=== PATIENT | female | born 1950 | race African-American/Black ===

== ENCOUNTER 2023-12-04 14:41 | Emergency (ER) | payer OTHER ==
[~2023-12-04] VITALS: Ht 172.7 cm; Wt 95.0 kg
[2023-12-04 14:58] VITALS: O2SAT 98
[2023-12-04] MEDS ORDERED: compazine (14:58)
[2023-12-04] MEDS ORDERED: oxycodone (14:58)
[2023-12-04] MEDS ORDERED: simvastatin (14:58)
[2023-12-04] MEDS ORDERED: baclofen (14:58)
[2023-12-04] MEDS ORDERED: gabapentin (14:58)
[2023-12-04] MEDS ORDERED: triamterene (14:58)
[2023-12-04] MEDS ORDERED: pregabalin (14:58)
[2023-12-04 16:08] LABS: BASOPHILS % 1.2 % (0.0-2.0); HEMATOCRIT. 37.4 % (36.0-48.0); HEMOGLOBIN. 12.1 g/dL (12.0-16.0); LYMPHOCYTES % 22.5 % (20.0-50.0); MEAN CORPUSCULAR HEMOGLOBIN 27.2 pg (28.0-32.0); MEAN CORPUSCULAR HGB CONC 32.4 g/dL (31.0-37.0); MEAN CORPUSCULAR VOLUME 84.1 fL (81.0-99.0); MEAN PLATELET VOLUME 7.8 fl (7.4-10.4); MONOCYTES % 6.5 % (2.0-8.0); NEUTROPHILS % 66.8 % (40.0-76.0); PLATELET 229 x1000/uL (130-400); RED BLOOD CELL COUNT 4.45 mill/uL (4.2-5.4); RED CELL DISTRIBUTION WIDTH 16.2 % (11.6-14.6); WHITE BLOOD COUNT 9.8 x1000/uL (4.5-11.0)
[2023-12-04 16:17] LABS: CHLORIDE 102 mEq/L (98-107); SODIUM 139 mEq/L (136-145)
[2023-12-04 16:18] LABS: CALCIUM 10.4 mg/dL (8.7-10.4); CARBON DIOXIDE 27 mEq/L (21-32)
[2023-12-04 16:22] LABS: UREA NITROGEN BLOOD 23 mg/dL (9-23)
[2023-12-04 16:23] LABS: CREATININE 1.2 mg/dL (0.6-1.0); GLUCOSE 101 mg/dL (70-105)
[2023-12-04 16:24] LABS: ACETAMINOPHEN 8 ug/mL (10-30); AMMONIA < 17 uMol/L (<32)
[2023-12-04 16:25] LABS: ALANINE AMINOTRANSFERASE 21 IU/L (10-49); ALBUMIN 4.8 g/dL (3.2-4.8); ASPARTATE AMINOTRANSFERASE 22 IU/L (<34); BILIRUBIN DIRECT 0.1 mg/dL (<=3.0); BILIRUBIN TOTAL 0.4 mg/dL (0.1-1.0); PROTEIN TOTAL 7.5 g/dL (6.0-8.3)
[2023-12-04 16:27] LABS: THYROID STIMULATING HORMONE 0.41 uIU/mL (0.55-4.78)
[2023-12-04 16:35] LABS: ETHANOL BLOOD < 10 mg/dL (<10); TROPONIN I HIGH SENSITIVITY < 4 ng/L (3.0-34)
[2023-12-04 18:09] LABS: TROPONIN I HIGH SENSITIVITY < 4 ng/L (3.0-34)
[2023-12-04 19:00] LABS: CLARITY URINE CLEAR (CLEAR); COLOR URINE YELLOW (YELLOW); GLUCOSE URINE NEGATIVE (NEGATIVE); KETONES URINE NEGATIVE (NEGATIVE); LEUKOCYTE ESTERASE URINE NEGATIVE (NEGATIVE); NITRITE URINE NEGATIVE (NEGATIVE); OCCULT BLOOD URINE NEGATIVE (NEGATIVE); PROTEIN URINE NEGATIVE (NEGATIVE); SPECIFIC GRAVITY URINE 1.004 (1.005-1.030); UROBILINOGEN URINE 0.2 E.U./dL (0.2-1.0)
[2023-12-04 19:17] LABS: *AMPHETAMINES SCREEN URINE NEGATIVE (NEGATIVE); *BARBITURATES SCREEN URINE NEGATIVE (NEGATIVE); *BENZODIAZEPINES SCREEN URINE NEGATIVE (NEGATIVE); *COCAINE SCREEN URINE NEGATIVE (NEGATIVE); CANNABINOID URINE SCREEN NEGATIVE (NEGATIVE); ECSTASY MDMA SCREEN URINE NEGATIVE (NEGATIVE); METHADONE URINE SCREEN NEGATIVE (NEGATIVE); OPIATES URINE SCREEN PRESUMPTIVE POSITIVE (NEGATIVE); PHENCYCLIDINE URINE SCREEN NEGATIVE (NEGATIVE)
[2023-12-04] MEDS ORDERED: POTA-203 PO (20:23)
[2023-12-04] MEDS ORDERED: GABA-529 PO (20:23)
[2023-12-04] MEDS ORDERED: DULO60CA64 PO (20:23)
[2023-12-04] MEDS ORDERED: HYDR-4009 PO (20:23)
[2023-12-04] MEDS ORDERED: PROC10TA65 PO (20:23)
[2023-12-04] MEDS ORDERED: DYZ PO (20:23)
[2023-12-04] MEDS ORDERED: LORA-249 PO (20:23)
[2023-12-04] MEDS ORDERED: BACL-141 PO (20:23)
[2023-12-04] MEDS ORDERED: SIMV-43 PO (20:23)
[2023-12-04] MEDS ORDERED: CYCL10TA21 PO (20:23)
[2023-12-04] MEDS ORDERED: OXYC-485 PO (20:23)
[2023-12-04] MEDS: NAPROXEN 375MG TABLET PO ONE (20:29)
[2023-12-04] MEDS: MORPHINE SULFATE 2 MG/ML CPJ (NOT FOR IM USE) IV ONE (20:42)
[2023-12-04 20:49] VITALS: BP 125/50; PULSE 76; RESP 12; TEMP 98.3
== END 2023-12-04 21:18 | disposition short-term general hospital (02) ==
LOC: ER 14:41
DX: G93.40 Encephalopathy, unspecified (principal); I10 Essential (primary) hypertension; Z20.822 Contact with and (suspected) exposure to COVID-19
CPT/HCPCS: 80076; 80305; 80048; 81003; 80307; 80329; 80320; 82140; 82962; 84443; 85025; 84484; 36415; 71045; 70450; 93005; 96374; 99285; 87426; J2270; G0480